=== PATIENT | male | born 1995 | race Caucasian/White ===

== ENCOUNTER 2021-02-18 13:21 | Emergency (ER) | payer SELFPAY ==
[~2021-02-18] VITALS: Ht 170.2 cm; Wt 67.1 kg
--- NOTE | 2021-02-18 13:37 | NUR ---
[facility] AND [employer] FROM THE STREET TO ER BED 15. SEDATED, RECEIVED VERSED 5MG IM ON SCENE. NOT IN RESP DISTRESS. BROUGHT IN FOR BEING AGITATED AND BANGING HIS HEAD ON THE GROUND. UNABLE TO GET FURTHER INFORMATION FROM PT AT THIS TIME. PT IN MONITOR. SITTER AT BEDSIDE.
[2021-02-18 14:15] LABS: BASOPHILS # (AUTO) 0.1 K/uL (0.0-0.2); BASOPHILS % (AUTO) 0.7 % (0.0-2.0); EOSINOPHILS % (AUTO) 2.7 % (0.0-6.0); HEMATOCRIT 41 % (39-51); HEMOGLOBIN 14.1 g/dL (13.5-17.5); LYMPHOCYTES # (AUTO) 1.4 K/uL (0.8-4.8); LYMPHOCYTES % (AUTO) 18.6 % (20.0-44.0); MEAN CORPUSCULAR HGB CONC 34 g/dl (31.0-36.0); MEAN CORPUSCULAR VOLUME 93 fL (80-96); MONOCYTES # (AUTO) 0.5 K/uL (0.1-1.30); MONOCYTES % (AUTO) 7.1 % (2.0-12.0); NEUTROPHILS # (AUTO) 5.5 K/uL (1.8-8.9); NEUTROPHILS % (AUTO) 70.9 % (43.0-81.0); PLATELET COUNT (AUTO) 235 K/uL (150-450); RED BLOOD CELL COUNT(AUTO) 4.44 MIL/uL (4.5-6.0); WHITE BLOOD COUNT (AUTO) 7.8 K/uL (4.3-11.0)
--- NOTE | 2021-02-18 14:22 | NUR ---
DR CHAPMAN AT BEDSIDE FOR EVAL.
[2021-02-18 14:23] LABS: CALCIUM, SERUM 8.5 mg/dL (8.5-10.1); CARBON DIOXIDE 30 mmol/L (21-32); CHLORIDE 104 mmol/L (98-107); GLUCOSE 170 mg/dL (74-106); POTASSIUM 3.5 mmol/L (3.5-5.1); SODIUM SERUM 140 mmol/L (136-145); UREA NITROGEN, BLOOD 19 mg/dL (7-18)
[2021-02-18 14:30] LABS: ACETAMINOPHEN 0 ug/ml (10-30); ALANINE AMINOTRANSFERASE 35 U/L (12-78); ALBUMIN 3.4 g/dL (3.4-5.0); ALCOHOL, BLOOD < 3 mg/dL (0-0); ALKALINE PHOSPHATASE 122 U/L (46-116); ASPARTATE AMINOTRANSFERASE 41 U/L (15-37); BILIRUBIN,DIRECT 0.2 mg/dL (0.0-0.2); BILIRUBIN,TOTAL 0.9 mg/dL (0.2-1.0); TOTAL PROTEIN, SERUM 6.5 g/dL (6.4-8.2)
--- NOTE | 2021-02-18 14:50 | NUR ---
PT OT RADIOLOGY FOR HEAD CT SCAN VIA [facility].
[2021-02-18 15:01] LABS: BILIRUBIN,URINE SMALL (NEGATIVE); COLOR,URINE YELLOW (YELLOW); LEUKOCYTE ESTERASE ,URINE Negative (NEGATIVE); NITRITE, URINE Negative (NEGATIVE); PROTEIN,URINE Trace mg/dl (NEGATIVE); UGLUCOSE Negative (NEGATIVE)
[2021-02-18 15:18] LABS: RBC,URINE 0-2 /HPF (0-2); WBC,URINE 0-2 /HPF (0-3)
--- NOTE | 2021-02-18 15:18 | NUR ---
Yard Manager note: patient financial services coordinator consult requested for agitation. Patient is a 25-year-old, male. SW was unable to interview the patient as the patient was unarousable. SW was unable to assess the patient's need for community resources. Dr. Guerin notified TAYA that the patient presented agitated and altered upon arrival to the emergency department, 02/18/21. PLAN: No further SS intervention at this time, however, SS will remain available as needed.
[2021-02-18 15:19] LABS: BACTERIA,URINE Few /HPF (None Seen); SQUAMOUS EPITHELIAL CELL,UR Few /HPF (None Seen)
[2021-02-18] MEDS ORDERED: OLANZAPINE 10 MG VIAL IM ONE ×2 (18:11→18:30)
--- NOTE | 2021-02-18 18:19 | NUR ---
PT AWOKEN UP AND AND PT IS AGITATED. YELLING NON SENSE AND SPITTING ALL OVER.
--- NOTE | 2021-02-19 05:20 | NUR ---
PT AWAKE, AAOX4. AMBULATORY WITH STEADY GAIT. REQUESTING TO LEAVE. ER AWARE. DENIES SI AND HI. VSS.
--- NOTE | 2021-02-19 05:20 | NUR ---
Patient discharged to home in stable condition. Written and verbal after care instructions given. Patient verbalizes understanding of instruction.
[2021-02-19 05:21] VITALS: BP 134/76
--- NOTE | 2021-02-19 05:21 | NUR ---
PT REFUSED TO GIVE NAME AND .
== END 2021-02-19 05:25 | disposition home or self-care (01) ==
LOC: ER 14:33
DX: R45.1 Restlessness and agitation (principal); F15.10 Other stimulant abuse, uncomplicated; R41.82 Altered mental status, unspecified
CPT/HCPCS: 36415; 70450; 80048; 80076; 80143; 80307; 80320; 81001; 85025; 96372; 99285; J3490; G0480